=== PATIENT | female | born 1965 | race Caucasian/White ===

== ENCOUNTER 2021-05-04 11:41 | Emergency (ER) | payer MEDICAID ==
[~2021-05-04] VITALS: Ht 170.2 cm; Wt 81.0 kg
--- NOTE | 2021-05-04 12:03 | NUR ---
PT brought back from triage with chief complaint of bird bite to right middle finger.
--- NOTE | 2021-05-04 12:22 | NUR ---
ER PA at bedside for eval.
[2021-05-04] MEDS ORDERED: LIDOCAINE-MPF 1%, 5ML ONE ×2 (12:23→13:31)
[2021-05-04] MEDS ORDERED: LIDOCAINE 1%, 10ML INFIL ONE (12:30)
--- NOTE | 2021-05-04 13:01 | NUR ---
[facility] at bedside for wound care
[2021-05-04] MEDS ORDERED: NEOSPORIN OINT. PKT 1 PACKET ONE (14:29)
[2021-05-04 15:00] VITALS: BP 180/100
--- NOTE | 2021-05-04 15:01 | NUR ---
VINCE KELLY AWARE OF VS AT TIME OF DISCHARGE. PT REPORTS SHE HAS HIGH BLOOD PRESSURE AND HAS NOT HAD HER MEDICATION TODAY BUT WILL TAKE IT. OKAY FOR DC.
== END 2021-05-04 15:18 | disposition home or self-care (01) ==
LOC: ED 15:06
DX: S61.310A Laceration without foreign body of right index finger with damage to nail, initial encounter (principal); W61.91XA Bitten by other birds, initial encounter; Y93.89 Activity, other specified; Y92.009 Unspecified place in unspecified non-institutional (private) residence as the place of occurrence of the external cause; Y99.8 Other external cause status
CPT/HCPCS: 12001; 99283